=== PATIENT | female | born 1995 | race Caucasian/White ===

== ENCOUNTER → 2018-09-03 11:37 | Outpatient (CLI) | payer OTHER, SELFPAY ==
[2018-09-03 15:07] LABS: Chlamydia Trachomatis by PCR Negative (Negative); Neisserai gonorrhoeae by PCR Negative (Negative); Probe Check PASS; Sample Adequacy Control PASS; Specimen Processing Control PASS
[2018-09-06 10:21] LABS: HPV Reflexed? NOT INDICATED
--- OUTSIDE RECORDS SUMMARY | 2018-10-29 14:55 | XMS RPT_ITS ---
:1995 Author Organization [facility] Care Team Providers Name Role Phone JOSIANE SEPULVEDA DO Admitting Unavailable DIDUR, JOSIANE CLEMENTS Attending Unavailable DIDUR, JOSIANE CLEMENTS Primary Care Unavailable YOSSI YO MD Consulting Unavailable YOSSI YO MD Referring Unavailable PROVIDER, UNKNOWN Consulting Unavailable PROVIDER, UNKNOWN Consulting Unavailable PROVIDER, UNKNOWN Consulting Unavailable SealJosiane hall Attending Unavailable PROBLEMS PROBLEMS No Problem Records FoundPROCEDURES PROCEDURES No Procedure Records FoundRESULTS RESULTS CT/NG [facility] BY PCR Collected: 09/03/2018 Status: F Source: [place] 11:00 [facility] [place] TYPE CODE TESTS RESULT OUT OF RANGE REFERENCE UNITS LAB L8200.2100 Negative Normal Chlam Negative Trac PCR LAB L8200.2200 Negative Normal NG by Negative PCR Performed By: #### L8200.2000 #### [facility] [address] [place], [address] PAP I-G W/RFX HRHPV Collected: 09/03/2018 Status: F Source: [place] 11:00 [facility] [place] [facility] Order Comment: CYTOLOGY INFORMATION: - CLINICAL INFORMATION: - DATE LMP/MENOPAUSE: 08/07/18 LMP - COLLECTION VIAL: Thin Prep Vial - 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 of containers..01 ThinPrep Vial TYPE CODE TESTS RESULT OUT OF RANGE REFERENCE UNITS LAB L7400.0800 . Normal DIAGN Comment Result Comment: NEGATIVE FOR INTRAEPITHELIAL LESION AND MALIGNANCY. FUNGAL ORGANISMS MORPHOLOGICALLY CONSISTENT WITH DRAKE SPECIES ARE PRESENT. LAB L7400.0900 . Normal ADEQ Comment Result Comment: Satisfactory for evaluation. Endocervical and/or squamous metaplastic cells (endocervical component) are present. LAB L7400.1400 . Normal PERFORM Comment Result Comment: Kamryn Rees, Handbook Writer (ASCP) LAB L7400.2575 . Normal TEST METHOD Comment Result Comment: This liquid based ThinPrep(R) pap test was screened with the use of an image guided system. LAB L7400.2600 . Normal . COMM LAB L7400.2700 . Normal PAPSMR Comment Result Comment: The Pap smear is a screening test designed to aid in the detection of premalignant and malignant conditions of the uterine cervix. It is not a diagnostic procedure and should not be used as the sole means of detecting cervical cancer. Both false-positive and false-negative reports do occur. LAB L7400.2800 . Normal HPV RFLX Comment Result Comment: The HPV DNA reflex criteria were not met with this specimen result therefore, no HPV testing was performed. Performed at: - [facility] [id number] Forestry Biology Specialist: Sydnie Lugo MD, Phone: [phone] Performed By: #### L7400.0350 #### [facility] (refer to report for specific site) refer to report for address and phone number EMERGENCY REPORT Observed: 07/07/2018 Status: F Source: [facility] 3:22 AM [facility] EMERGENCY ROOM REPORT NAME ACCOUNT SEX AGE ADMIT DISCHARGE PT MED. RECORD# NUMBER DATE DATE TYPE NILSON, [id number] F 22 07/06/18 07/06/18 3 ALVIN Moe [id number] ROOM: ER DATE OF : 1995 DICTATING PHYSICIAN: Josiane Sepulveda ADDENDUM DIAGNOSTIC DATA: White count was 8.3, hemoglobin 14.3, hematocrit 42.7, and platelet count 312,000. Sodium was 143, potassium 3.9, chloride 109, CO2 of 22.3, BUN 11, creatinine 0.9, and glucose 98. Liver functions all came back within normal limits. Anion gap was 16. Urinalysis was negative with rare white cells, 1+ bacteria and occasional epithelial cells. was negative. Acetaminophen was less than 10. Salicylate level was less than 4. Alcohol level was 48 mg/dL. EMERGENCY DEPARTMENT COURSE AND TREATMENT: Crisis did come in and speak with the patient. They have arranged follow-up as an outpatient with her. They are going to have the patient see their counselor on the , but they are going to follow up with her in the crisis intervention clinic in the next 1 to 2 days as well, but they probably cannot get their actual counselor to see her until the . She does have her mom and sister here. They are very supportive. The patient has no plan and really denied thinking that she could hurt herself. She had just said things about not wanting to live because she was upset. Crisis had put in her note that she rated a 0 on their ED SAD PERSONS scale. At this point, the patient will be discharged to follow up with crisis in the next 1 to 2 days and for further follow-up as noted. The patient was discharged in a clinically stable condition. Nurse's notes reviewed. DIAGNOSIS: Anxiety. Dictated By: Josiane Sepulveda DO 07/06/18 06:35 JOB #: [id number] Transcribed By: tra 07/06/18 08:38 Electronically signed by: E-Sign: Dr. Josiane Sepulveda D.O. 07/07/18 03:22 Page 1 of 1 ALVIN DEVINE Emergency Room Report ALCOHOL-BLOOD MEDICAL Collected: 07/06/2018 Status: F Source: [facility] 2:30 AM [facility] REPOSITORY TYPE CODE TESTS RESULT OUT OF REFERENCE UNITS RANGE LAB ALCOHOL(KELLI 0 - 50 mg/dl NC) ALCOHOL 48 Performed By: #### [id number] #### [place] [id number] ACETAMINOPHEN Collected: 07/06/2018 Status: F [facility] REPOSITORY TYPE CODE TESTS RESULT OUT OF REFERENCE UNITS RANGE LAB ACETAMINOP 10.0 - 20.0 ug/mL HEN(LOINC) ACETAMINOPHEN <10.0 Performed By: #### [id number] #### [place] [id number] SALICYLATE Collected: 07/06/2018 Status: F Source: [facility] 2:30 AM [facility] REPOSITORY TYPE CODE TESTS RESULT OUT OF REFERENCE UNITS RANGE LAB SALICYLATE 0.0 - 30.0 mg/dl (LOINC) SALICYLATE <4.0 Result Comment: *PATIENTS TREATED WITH SULFASALAZINE MAY GENERATE A FALSE HIGH RESULT FOR SALICYLATE. *PATIENTS TREATED WITH SULFAPYRIDINE MAY GENERATE A FALSE LOW RESULT FOR SALICYLATE. Performed By: #### [id number] #### [facility],[address] [place] [address] CBC Collected: 07/06/2018 Status: F Source: [facility] 2:30 [facility] REPOSITORY TYPE CODE TESTS RESULT OUT OF RANGE REFERENCE UNITS LAB CBC(LOINC) CBC Result Comment: CBC-COMPLETE BLOOD COUNT LAB WBC(LOINC) 4.5 - 10.8 x 10EE3/UL WBC 8.3 LAB RBC(LOINC) 4.10 - x 10EE6/UL 5.30 RBC 4.74 LAB HEMOGLOBIN(LOINC) 12.0 - g/dl 16.0 HEMOGLOBIN 14.3 LAB HEMATOCRIT(LOINC) 34.0 - % 46.0 HEMATOCRIT 42.7 LAB MCV(LOINC) 80 - 99 fl MCV 90 LAB MCH(LOINC) 27 - 33 pg MCH 30 LAB MCHC(LOINC) 32 - 36 X10 3 MCHC 34 LAB RDW/CV(LOINC) 12.0 - % 15.6 RDW/CV 13.6 LAB PLATELET(LOINC) 150 - 450 x10EE3/UL PLATELET 312 LAB MPV(LOINC) 6.6 - 10.5 fl MPV 10.3 Result Comment: AUTOMATED DIFFERENTIAL LAB NEUT %(LOINC) 46.0 - 76.0 % NEUT % 69.7 LAB LYMPH %(LOINC) 20.0 - 45.0 % LYMPH % 22.9 LAB MONOS %(LOINC) 0.0 - 10.0 % MONOS % 5.6 LAB EO %(LOINC) 0.0 - 7.0 % EO % 0.5 LAB BASO %(LOINC) 0.0 - 2.0 % BASO % 1.3 LAB Lymph #(LOINC) 0.80 - 2.80 x10EE3/U L Lymph # 1.90 LAB Neut #(LOINC) 1.50 - 7.10 x10EE3/U L Neut # 5.80 LAB [place] #(LOINC) 0.20 - 1.00 x10EE3/U L [place] # 0.50 LAB EO #(LOINC) 0.00 - 0.50 x10EE3/U L EO # 0.00 LAB Baso #(LOINC) 0.00 - 0.10 x10EE3/U L Baso # 0.10 LAB MANUAL DIFF(LOINC) MANUAL DIFF N/A LAB MORPHOLOGY(INC ) MORPHOLOGY N/A Result Comment: {CD] Performed By: #### [id number] #### [facility],[address] [place] [address] CMP WITH EGFR Collected: 07/06/2018 Status: F Source: [facility] 2:30 AM [facility] REPOSITORY TYPE CODE TESTS RESULT OUT OF RANGE REFERENCE UNITS LAB CMP with eGFR(INC) CMP with eGFR Result Comment: COMPREHENSIVE METABOLIC PANEL LAB SODIUM(LOINC) 136 - 145 mmol/l SODIUM 143 LAB POTASSIUM(LOINC) 3.5 - 5.1 mmol/L POTASSIUM 3.9 LAB CHLORIDE(LOINC) 98 - 107 mmol/L CHLORIDE High 109 LAB CO2(LOINC) 21.0 - mmol/L 31.0 CO2 22.3 LAB GLUCOSE(LOINC) 74 - 106 mg/dl GLUCOSE 98 LAB BUN(LOINC) 6 - 20 mg/dl BUN 11 LAB CREATININE(LOINC) 0.6 - 1.2 mg/dl CREATININE 0.9 LAB AST/SGOT(LOINC) 13 - 39 U/L AST/SGOT 17 LAB ALK PHOS(LOINC) 38 - 126 U/L ALK PHOS 43 LAB CALCIUM(LOINC) 8.6 - mg/dl 10.2 CALCIUM 9.2 LAB TOTAL 6.4 - 8.3 g/dl PROTEIN(LOINC) TOTAL PROTEIN 7.6 LAB ALBUMIN(LOINC) 3.4 - 4.8 g/dL ALBUMIN 4.2 LAB GLOBULIN(LOINC) 1.5 - 3.8 G/DL GLOBULIN 3.4 LAB A/G RATIO(LOINC) 0.9 - 1.6 A/G RATIO 1.2 LAB TOTAL BILI(LOINC) 0.0 - 1.5 mg/dl TOTAL BILI 0.3 LAB B/C RATIO(LOINC) 0 - 30 ratio B/C RATIO 12 LAB ALT/SGPT(LOINC) 8 - 35 U/L ALT/SGPT 16 LAB ANION GAP(LOINC) 10 - 20 mmol/L ANION GAP 16 LAB AGE(LOINC) years AGE 22 LAB eGFR(LOINC) 60 - 999 ML/MINUTE eGFR >60 LAB eGFR(AA)(LOINC) 60 - 999 ML/MINUTE eGFR(AA) >60 Result Comment: ACCORDING TO THE NATIONAL KIDNEY DISEASE EDUCATION PROGRAM(NKDE), A NORMAL eGFR IS A VALUE GREATER THAN OR EQUAL TO 60 ML/MIN/1.73 SQ METERS. CHRONIC KIDNEY DISEASE: <60mL/MIN/1.73 SQ METERS KIDNEY FAILURE: <15mL/MIN/1.73 SQ METERS THIS TEST SHOULD ONLY BE USED FOR PATIENTS 18 YEARS OF AGE AND OLDER. Performed By: #### [id number] #### [place] [id number] DRUG SCREEN URINE Collected: 07/06/2018 Status: F Source: [facility] MEDIC 2:15 AM [facility] REPOSITORY TYPE CODE TESTS RESULT OUT OF REFERENCE UNITS RANGE LAB DRUG SCREEN URINE MEDIC(LOINC) DRUG SCREEN URINE MEDIC Result Comment: DRUG SCREEN - URINE LAB PCP(LOINC) PCP NEG LAB COCAINE(LOINC) COCAINE NEG LAB OPIATES(LOINC) OPIATES NEG LAB AMPHETAMINES(LOINC ) AMPHETAMINES NEG LAB B-DIAZEPINES(LOINC ) B-DIAZEPINES NEG LAB TCA(LOINC) TCA NEG LAB METHADONE(LOINC) METHADONE NEG LAB BARBITURATES(LOINC ) BARBITURATES NEG LAB THC(LOINC) THC NEG Result Comment: PATIENTS RECEIVING PROTON PUMP INHIBITORS MAY DEMONSTRATE FALSE POSITIVE THC/CANNABINOID RESULTS. AN ALTERNATIVE CONFIRMATORY METHOD SHOULD BE CONSIDERED TO VERIFY POSITIVE RESULTS. Performed By: #### [id number] #### [facility],[address] [place] [address] URINE Collected: 07/06/2018 Status: F Source: [facility] 2:15 AM [facility] REPOSITORY TYPE CODE TESTS RESULT OUT OF REFERENCE UNITS RANGE LAB NEGATIVE UR(LOINC) UR NEGATIVE LAB INTERNAL QC(LOINC) INTERNAL QC PASS LAB EXTERNAL QC DONE?(LOINC) EXTERNAL QC YES DONE? Performed By: #### [id number] #### [facility],[address] [place] [address] URINALYSIS Collected: 07/06/2018 Status: F [facility]15 AM [facility] REPOSITORY TYPE CODE TESTS RESULT OUT OF REFERENCE UNITS RANGE LAB URINALYSIS (LOINC) URINALYSIS Result Comment: URINALYSIS LAB Specimen Type(LOINC) Specimen Type UNSPECIFIED LAB Color(LOINC) NORMAL: YELLOW Color p.yel LAB Clarity(LOINC) NORMAL: CLEAR Clarity clear LAB ph(LOINC) NORMAL: 5.0-8.0 ph 5 LAB Protein(LOINC) NORMAL: NEGATIVE Protein NEG LAB Glucose(LOINC) NORMAL: NORMAL Glucose NORM LAB Ketone(LOINC) NORMAL: NEGATIVE Ketone NEG LAB Bilirubin(LOINC) NORMAL: NEGATIVE NEG Bilirubin LAB Blood(LOINC) NORMAL: NEGATIVE Blood 250 Abnormal LAB Urobilinog(LOINC NORMAL: ) NORMAL NORM Urobilinog LAB Sp NORMAL: [place](LOINC) 1.010-1.030 Sp 1.020 [place] LAB Nitrite(LOINC) NORMAL: NEGATIVE Nitrite NEG LAB Leukocytes(LOINC NORMAL: ) NEGATIVE NEG Leukocytes LAB Microscopic(LOIN C) SEE Microscopic BELOW Result Comment: MICROSCOPIC LAB Wbc(LOINC) 0-5/hpf Wbc RARE LAB Rbc(LOINC) 0-3/hpf Rbc 0-5 LAB Casts(LOINC) Casts NONE LAB Crystals(LOINC) Crystals NONE LAB Amorphous(LOINC) Amorphous NONE LAB Bacteria(LOINC) Bacteria 1+ LAB Epi Cells(LOINC) Epi Cells OCC LAB Mucous(LOINC) Mucous NONE LAB Yeast(LOINC) Yeast NONE Performed By: #### [id number] #### [place] [id number] ALLERGIES ALLERGIES DATE TYPE / CODE NAME / CODE REACTION SEVERITY SOURCE Miscellaneous No Known Drug Moderate [facility] Allergy/[id number](S Allergies (Severity [facility]) Modifier) Hospital (Qualifier Repository Value) ENCOUNTERS ENCOUNTERS ADMIT/DISCHARGE ACCOUNT ADMITTING ENCOUNTER LOCATION SOURCE NUMBER CLASS 09/03/2018 [id number] Ambulatory [address] ing:LABSPEC Repository 07/06/2018/ [id number] JOSIANE SEPULVEDA [facility] [place] [address] 8 DO oom: ERBed: A [facility] Repository PAYERS PAYERS ENCOUNTER GUARANTOR PAYER SUBSCRIBER SOURCE 09/03/2018 ALVIN HELLER Sara [address]UT BOX Insurance:[address] Number: [facility] [address]Uqm: UNK [id number] Repository (HP) Date:[id number] [address]ZR: 09/03/2018 Secondary NOT GIVENUNK Ramer Insurance:SELF PAY [facility] Number: Effective Repository Date:2018-09-03 07/06/2018 ALVIN Solorzano LOTUTDOB: Insurance:MEDICAID LOTUTDOB: [id number] [id number] Hospital [id number] Number: [id number] Repository LEMUELDominguez LLANOS, [id number] [place] [address]Zeo: Date:Plan Name:[facility] [id number] ()
== END ==
PROVIDERS: Visit Provider Obstetrics & Gynecology
DX: Z12.4 Encounter for screening for malignant neoplasm of cervix (principal)
CPT/HCPCS: 87491; 87591; 88175; G0145

== ENCOUNTER → 2022-02-05 | Outpatient (CLI) | payer SELFPAY ==
[2022-02-06 09:27] LABS: HIV - WCH Non-Reactive (Nonreactive); Hepatitis B Surface Antigen Non-Reactive (Nonreactive); Hepatitis C Antibody Non-Reactive (Nonreactive); Syphilis Antibodies Non-reactive
[2022-02-08 00:07] LABS: Chlamydia By Nucleic Acid AMP Negative (Negative)
[2022-02-08 08:36] LABS: Gonococcus By Nucleic Acid AMP Negative (Negative)
== END | disposition home or self-care (01) ==
LOC: WOBLAB 14:54
PROVIDERS: Visit Provider Student in an Organized Health Care Education/Training Program
DX: Z11.3 Encounter for screening for infections with a predominantly sexual mode of transmission (principal)
CPT/HCPCS: 36415; 86703; 86780; 86803; 87340; 87491; 87591